=== PATIENT | female | born 1965 | race Caucasian/White ===

== ENCOUNTER → 2018-09-25 | Day surgery (SDC) | payer BC ==
[~2018-09-25] MED LIST: EPHEDRINE SULFATE INJ 50 MG/10 ML SYR ONE; FENTANYL CITRATE/PF 100MCG/2 ML INJ ONE; HYOSCYAMINE SULFATE 0.5 MG/ML INJ ONE; LISINOPRIL10 MG PO; MIDAZOLAM HCL 2 MG/2 ML VIAL ONE; PANTOPRAZOLE SO40 MG PO; PROPOFOL IV EMULSION 10 MG/ML 50 ML VIAL ONE; VENLAFAXINE HCL75 M2 PO
--- NOTE | 2018-09-25 16:15 | Operative Report ---
DATE OF PROCEDURE: 09/25/2018 SURGEON: Jorge Roy MD PROCEDURE: Colonoscopy. REFERRING PHYSICIAN: Evangelist Gonsales M.D. INDICATIONS FOR COLONOSCOPY: Colorectal cancer screening. MEDICATION: The patient was under MAC. Please see anesthesiologist's note. PROCEDURE IN DETAIL: With the patient in left lateral decubitus position, a flexible fiberoptic Olympus colonoscope was inserted into the rectum with ease and advanced all the way to the cecum. It was then withdrawn slowly and the mucosa overlying the cecum, ascending colon, transverse, descending, sigmoid, and rectum grossly appeared to be within normal limits. The scope was then retroflexed into the distal rectum and some small internal hemorrhoids were noted, none of which was actively bleeding. The scope was then straightened out and was subsequently withdrawn. The patient tolerated the procedure well. IMPRESSION: Internal hemorrhoids. PLAN: Initiate high-fiber, low-fat diet. Initiate high-fiber supplement. The patient might benefit from a followup colonoscopy in 10 years. Jorge Roy MD [facility] /[id number] cc: Evangelist Gonsales MD
--- OUTSIDE RECORDS SUMMARY | 2018-09-27 09:01 | XMS REPORT | Continuity of Care Document ---
Author Author [facility] Organization Interface Address Unknown Phone Unavailable Problems Problem Status Onset Date Classification Date Reported Comments Source R92.8 - OTH ABN AND INCONCLUSIVE FINDI Active 10/08/2015 [facility] Medications Medication Details Route Status Patient Instructions Ordering Provider Order Date Source Allergies, Adverse Reactions, Alerts Substance Category Reaction Severity Reaction type Status Date Reported Comments Source Immunizations Immunization Date Given Site Status Last Updated Comments Source Results Order Name Results Value Reference Range Date Interpretation Comments Source Breast w/wo contrast bilat MRI Breast w/wo contrast bilat MRI - BREAST W/WO CONTRAST BILAT MRI BREAST MRI OF BOTH BREASTS : 05/07/2016 CLINICAL: HISTORY: 50 yo high risk female presents for annual. Personal history of RIGHT breast ADH and excisional biopsy, 2012. The patient has the following family history of breast cancer: grandmother (55) and ovarian cancer. Also, her mother had ovarian and pancreatic cancer. Benign LEFT core biopsy. Taking Tamoxifen. Prior hysterectomy. Comparison is made to exams dated: 05/02/2015 ultrasound, 05/02/2015 mammogram, 08/16/2014 breast MRI, 02/17/2014 ultrasound, 02/17/2014 mammogram and 09/16/2012 mammogram - [facility]. INFORMED CONSENT: The procedure was explained to the patient including possible risks, benefits, complications and alternatives. The patient understood and desired to proceed. PRE GADOLINIUM CONTRAST INJECTION LABORATORY TESTING: The patient's creatinine and GFR were assessed with the I-STAT DEVICE. Creatinine measured 0.7 mg/dL and GFR 103. The patient's values fall within normal limits for age and weight. These values are considered within tolerance and safe for injection. TECHNIQUE: High resolution 1.4 mm RODEO plus, axial acquisitions were obtained of both breasts using an [employer] 1.5 Bren dedicated breast MRI preceding and following the administration of 15 cc's of Omniscan, subtraction, 2D and 3D maximum intensity projections (MIP), multiplanar reconstructions (MPR) and LEONARDO Time Activity curves were performed on the Physician's Review Station with [employer]. MRI FINDINGS: RIGHT BREAST FINDINGS: I do not identify any definite evidence of spiculated or linear beaded enhancement to suggest malignancy. The nipple-areolar complex appears to be unremarkable. The visualized lymph nodes appear architecturally preserved. The chest wall structures appear normal. No internal mammary adenopathy. LEFT BREAST FINDINGS: I do not identify any definite evidence of spiculated or linear beaded enhancement to suggest malignancy. The nipple-areolar complex appears to be unremarkable. The visualized lymph nodes appear architecturally preserved. The chest wall structures appear normal. No internal mammary adenopathy. IMPRESSION: BENIGN 1. THERE IS NO DEFINITE MRI EVIDENCE TO SUGGEST MALIGNANCY INVOLVING EITHER BREAST AND NO SIGNIFICANT CHANGE. RECOMMENDATION: 1. PATIENT IS DUE FOR A BILATERAL SCREENING MAMMOGRAM AT THIS TIME (LAST MAMMOGRAM WAS 05/02/15). I telephonically discussed the findings and recommendations with the patien on 05/09/16. Flor Velez M.D. sg/:05/09/2016 16:24:19 Casing Flusher: Ashely Irwin [facility] This exam was dictated and interpreted by [id number] for [facility]. letter sent: Bilateral Benign MRI BI-RADS: 2 Benign 05/07/2016 - - Read by: Flor Velez MD Dictated Date/time: 05/09/16 16:24 Electronically Signed by: Flor Velez MD 05/09/16 16:24 FINAL REPORT [facility] Vital Signs Vital Sign Value Date Comments Source Encounters Location Location Details Encounter Type Encounter Number Reason For Visit Attending Provider ADM Date DC Date Status Source [facility] Outpatient Imaging - [facility] Di[facility] [id number] Nagi Raygoza 05/07/2016 05/08/2016 [facility] [place] Women[facility] Procedures Procedure Code Date Perfomer Comments Source
--- OUTSIDE RECORDS SUMMARY | 2018-09-27 09:01 | XMS REPORT | Summary of Care ---
Author Author [facility] - [facility] Address Unknown Phone Unavailable Encounter HQ Encntr_alias(FIN) [id number] Date(s): 05/07/16 - 05/07/16 [facility] [address] [address]- [place] [phone] Discharge Disposition: Home or Self Care Attending Physician: Nagi Raygoza MD Vital Signs No data available for this section Problem List No data available for this section Allergies, Adverse Reactions, Alerts No data available for this section Medications No data available for this section Results No data available for this section Immunizations No data available for this section Procedures No data available for this section Social History No data available for this section Assessment and Plan No data available for this section
--- OUTSIDE RECORDS SUMMARY | 2018-09-27 09:01 | XMS REPORT ---
Author Author [facility] Address Unknown Phone Unavailable Care Team Providers Care Detailer Name Role Phone Unavailable Unavailable Problems This patient has no known problems. Allergies, Adverse Reactions, Alerts This patient has no known allergies or adverse reactions. Medications This patient has no known medications.
== END | disposition home or self-care (01) ==
LOC: OR 05:55
PROVIDERS: ATTEND Internal Medicine Gastroenterology
DX: Z12.11 Encounter for screening for malignant neoplasm of colon (principal); K64.8 Other hemorrhoids; I10 Essential (primary) hypertension; R12 Heartburn; R14.0 Abdominal distension (gaseous)
CPT/HCPCS: 45378; 93005; J1980; J2250; J2704; G0121